=== PATIENT | male | born 1970 | race American Indian/Alaskan Native ===

== ENCOUNTER 2017-07-27 11:07 | Emergency (ER) | payer SELFPAY ==
[2017-07-27] MEDS ORDERED: ASPIRIN PO ONE (11:21)
[2017-07-27 14:39] LABS: Bilirubin,Urine NEG (Negative); Blood,Urine NEG (Negative); Color,Urine Red (Yellow); Protein,Urine <15 mg/dL mg/dL (Negative); Urobilinogen,Urine < 2.0 mg/dL (<2.0); WBC,Urine < 1.0 /HPF (0.0-6.0)
[2017-07-27] MEDS ORDERED: CATAPRES ONE (16:05)
[2017-07-27] MEDS ORDERED: CATAPRES PO ONE (16:08)
[2017-07-27] MEDS ORDERED: NACL 0.9% 1000 ML 1,000 ML IV ONE (16:23)
--- NOTE | 2017-07-27 16:26 | Emergency Department Report ---
<THALIA TALBOT - Last Filed: 07/27/17 18:25> ED General Adult HPI - General Chief complaint: Abdominal Pain Stated complaint: CHEST PAIN,ABD PAIN Time Seen by Provider: 07/27/17 16:10 Source: patient Mode of arrival: Ambulatory Limitations: No Limitations - History of Present Illness Initial comments: 47-year-old male history of gallbladder disease history of chronic pancreatitis and alcohol abuse says he is having increasing abdominal pain. Says he is supposed to his gallbladder out in 2 weeks in [place] thinks worse pain today also thinks his stool is black for 1-2 days.also wants to get checked out for chest pain, he had it at rest this am, no tearing pain, no exertional cp, no calf pain or swelling no sob , c/o l side cp began at rest this am constant all day, states had cath 6 yrs ago w/ some ?abnormalties but didn't requrie stents, no tobacco, hx of etoh and chronic pancreatitis,w. hx of htn and dm MD Complaint: multiple c/o: abd pain, cp, black stool Severity scale (0 -10): 0 Consistency: intermittent Improves with: none Worsens with: none Associated Symptoms: denies other symptoms, chest pain, nausea/vomiting, weakness. denies: diaphoresis, fever/chills, headaches, loss of appetite, malaise, rash, seizure, shortness of breath, syncope - Related Data Previous Rx's Medication Instructions Recorded Last Taken Type Dicyclomine [Bentyl] 10 mg PO QID PRN #20 capsule 07/27/17 Unknown Rx Ondansetron [Zofran Odt] 4 mg PO Q8HR PRN #20 tab.rapdis 07/27/17 Unknown Rx amLODIPine [Norvasc] 5 mg PO DAILY #30 tab 07/27/17 Unknown Rx Allergies Allergy/AdvReac Type Severity Reaction Status Date / Time SHALOM Inhibitors Allergy Angioedema Verified 07/27/17 11:21 codeine Allergy Unknown Verified 07/27/17 11:21 ketorolac [From Toradol] Allergy Hives Verified 07/27/17 11:22 tramadol Allergy Rash Verified 07/27/17 11:21 ED Review of Systems ROS: Stated complaint: CHEST PAIN,ABD PAIN Other details as noted in HPI Comment: All other systems reviewed and negative Constitutional: denies: diaphoresis, fever, malaise ENT: denies: ear pain, throat pain, dental pain, hearing loss, congestion Respiratory: denies: cough, orthopnea, shortness of breath, SOB with exertion, SOB at rest, stridor, wheezing Cardiovascular: chest pain. denies: palpitations, dyspnea on exertion, orthopnea, edema, syncope Gastrointestinal: abdominal pain, nausea. denies: vomiting, diarrhea, constipation, hematemesis, melena, hematochezia Neurological: denies: headache, weakness, numbness, paresthesias, confusion, abnormal gait, vertigo Psychiatric: denies: auditory hallucinations, visual hallucinations, homicidal thoughts, suicidal thoughts ED Past Medical Hx - Past Medical History Hx Hypertension: Yes Hx Heart Attack/AMI: Yes (2010) Hx Diabetes: Yes Additional medical history: sluggish GB - Surgical History Additional Surgical History: heart cath 2010 - Social History Smoking Status: Unknown if ever smoked Substance Use Type: Alcohol - Medications Home Medications: Home Medications Medication Instructions Recorded Confirmed Last Taken Type Dicyclomine [Bentyl] 10 mg PO QID PRN #20 capsule 07/27/17 Unknown Rx Ondansetron [Zofran Odt] 4 mg PO Q8HR PRN #20 tab.rapdis 07/27/17 Unknown Rx amLODIPine [Norvasc] 5 mg PO DAILY #30 tab 07/27/17 Unknown Rx ED Physical Exam - General Limitations: No Limitations General appearance: alert, in no apparent distress - Head Head exam: Present: atraumatic, normocephalic - Eye Eye exam: Present: normal appearance, PERRL, EOMI - ENT ENT exam: Present: normal exam, normal orophraynx - Neck Neck exam: Present: normal inspection. Absent: tenderness, meningismus - Respiratory Respiratory exam: Present: normal lung sounds bilaterally, chest wall tenderness. Absent: respiratory distress, wheezes, rales, rhonchi, stridor - Cardiovascular Cardiovascular Exam: Present: regular rate, normal rhythm, normal heart sounds, other (physical bilaterally). Absent: irregular rhythm, rubs, gallop - GI/Abdominal GI/Abdominal exam: Present: soft, tenderness, other. Absent: guarding, rebound , rigid, pulsatile mass - Rectal Rectal exam: Present: heme (-) stool - Extremities Exam Extremities exam: Present: normal inspection, normal capillary refill. Absent: tenderness, pedal edema, joint swelling, calf tenderness - Back Exam Back exam: Present: normal inspection. Absent: CVA tenderness (R), CVA tenderness (L), muscle spasm, paraspinal tenderness, vertebral tenderness - Neurological Exam Neurological exam: Present: alert, oriented X3, CN II-XII intact. Absent: motor sensory deficit - Skin Skin exam: Present: warm. Absent: diaphoretic, erythema, urticaria, vesicles, petechiae ED Course Vital Signs 07/27/17 07/27/17 07/27/17 11:10 15:56 16:08 Temperature 98.2 F 98.6 F Pulse Rate 77 75 75 Respiratory 18 16 Rate Blood Pressure 180/120 199/137 Blood Pressure 199/137 [Right] O2 Sat by Pulse 100 97 Oximetry 07/27/17 07/27/17 07/27/17 18:24 18:26 18:30 Temperature 98 F Pulse Rate 75 78 Respiratory 18 16 Rate Blood Pressure 181/116 Blood Pressure 175/121 [Right] O2 Sat by Pulse 100 100 Oximetry ED Medical Decision Making - EKG Data -: EKG Interpreted by Mn EKG shows normal: sinus rhythm Rate: normal - EKG Data When compared to previous EKG there are: previous EKG unavailable Interpretation: other 07/27/17 18:23 no acu;te ischemic chagnee - Radiology Data Radiology results: report reviewed - Medical Decision Making Patient with multiple medical complaints history of alcoholism with chronic pancreatitis currently on enzymes he is here stating that his gallbladder supposed to come out in 2 weeks with right upper quadrant and epigastric pain. He also complaining of black stool over the stool is heme negative laboratory studies were just now sent and are pending CT abdomen and pelvis shows chronic pancreatitis normal appendix no evidence of gallbladder or biliary disease on CT. Patient then began to state that he needed it checked for his chest pain as well he does have some risk factors including diabetes and hypertension his blood pressure was elevated and this will be treated with some nitroglycerin paste initially he states he did take his aspirin today and he has been compliant with his multiple blood pressure medications. EKG showed no acute ischemic change troponin is pending chest pain is atypical laboratory studies will be needed to further evaluate but no evidence of ACS at this time patient will return to care to oncoming physician for further evaluation of laboratory studies and disposition Critical care attestation.: If time is entered above; I have spent that time in minutes in the direct care of this critically ill patient, excluding procedure time. ED Disposition Clinical Impression: Elevated blood pressure reading, Abdominal pain Disposition: DC-01 TO HOME OR SELFCARE Condition: Good Instructions: Chest Pain (ED), Abdominal Pain (ED) Additional Instructions: Take the pain medication, nausea medication as needed/directed. Please follow up with any of the listed program production specialist within the next 3 days for your elevated blood pressure and hypertension. Take the blood pressure medication as directed. 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 Long-term complications of hypertension and elevated blood pressure includes stroke, heart attack, disability, , paralysis, loss of quality of life. Therefore, it is very important that you as the patient follow up as recommended within the recommended timeframe. Avoid consumption of heavy and spicy foods and alcohol, and follow up with either your primary care doctor or gastroenterology specialist within the next 3-4 weeks for your acute on chronic abdominal pain. Please return to the ER right away with you pain, worsened pain, migration of pain, fevers, chills, lethargy, irritability, projectile vomiting, change in mental status, confusion, new worsening or different symptoms. Referrals: PRIMARY CAREMD [Primary Care Provider] - 3-5 Days [facility] [Provider Group] - 3-5 Days [facility] [Provider Group] - 3-5 Days [facility] [Provider Group] - 3-5 Days MARKIE RIVAS MD [Staff Physician] - 3-5 Days <JG HAMMOND - Last Filed: 07/27/17 20:56> ED Course - Reevaluation(s) Reevaluation #1: 07/27/17 20:51 EKG is unchanged 2 with the exception of left ventricular hypertrophy, high left ventricular voltage. Troponin negative 2. X-ray of the chest is negative. Noncontrast CT scan of the abdomen and pelvis demonstrates no acute findings. Patient resting comfortably in stretcher in no distress, blood pressure improved, pressure in the 170s, patient will be discharged as per Dr. Bravo plan to follow up with outpatient primary care, gastroenterology, cardiology. ED Medical Decision Making - Lab Data Result diagrams: 07/27/17 18:00 07/27/17 18:00 Vital Signs 07/27/17 07/27/17 07/27/17 11:10 15:56 16:08 Temperature 98.2 F 98.6 F Pulse Rate 77 75 75 Respiratory 18 16 Rate Blood Pressure 180/120 199/137 Blood Pressure 199/137 [Right] O2 Sat by Pulse 100 97 Oximetry 07/27/17 07/27/17 07/27/17 18:24 18:26 18:30 Temperature 98 F Pulse Rate 75 78 Respiratory 18 16 Rate Blood Pressure 181/116 Blood Pressure 175/121 [Right] O2 Sat by Pulse 100 100 Oximetry Lab Results 07/27/17 07/27/17 07/27/17 Range/Units 18:00 18:00 18:00 WBC 3.8 L (4.5-11.0) K/mm3 RBC 3.83 (3.65-5.03) M/mm3 Hgb 10.7 L (11.8-15.2) gm/dl Hct 32.8 L (35.5-45.6) % MCV 86 (84-94) fl MCH 28 (28-32) pg MCHC 33 (32-34) % RDW 21.0 H (13.2-15.2) % Plt Count 177 (140-440) K/mm3 [place] % (Auto) Urologist Physician PT 13.2 (12.2-14.9) Sec. INR 0.95 (0.87-1.13) APTT 29.5 (24.2-36.6) Sec. Sodium 137 (137-145) mmol/L Potassium 3.5 L (3.6-5.0) mmol/L Chloride 97.7 L (98-107) mmol/L Carbon Dioxide 24 (22-30) mmol/L Anion Gap 19 mmol/L BUN 5 L (9-20) mg/dL Creatinine 0.7 L (0.8-1.5) mg/dL Estimated GFR > 60 ml/min BUN/Creatinine Ratio 7 % Glucose 110 H (75-100) mg/dL Calcium 9.0 (8.4-10.2) mg/dL Total Bilirubin 1.10 (0.1-1.2) mg/dL AST 22 (5-40) units/L ALT 12 (7-56) units/L Alkaline Phosphatase 70 (35-129) units/L Troponin T < 0.010 (0.00-0.029) ng/mL NT-Pro-B Natriuret Pep (0-450) pg/mL Total Protein 7.2 (6.3-8.2) g/dL Albumin 4.3 (3.9-5) g/dL Albumin/Globulin Ratio 1.5 % Urine Color (Yellow) Urine Turbidity (Clear) Urine pH (5.0-7.0) Ur Specific [place] (1.003-1.030) Urine Protein (Negative) mg/dL Urine Glucose (UA) (Negative) mg/dL Urine Ketones (Negative) mg/dL Urine Blood (Negative) Urine Nitrite (Negative) Urine Bilirubin (Negative) Urine Urobilinogen (<2.0) mg/dL Ur Leukocyte Esterase (Negative) Urine WBC (Auto) (0.0-6.0) /HPF Urine RBC (Auto) (0.0-6.0) /HPF 07/27/17 07/27/17 Range/Units Unknown Unknown WBC (4.5-11.0) K/mm3 RBC (3.65-5.03) M/mm3 Hgb (11.8-15.2) gm/dl Hct (35.5-45.6) % MCV (84-94) fl MCH (28-32) pg MCHC (32-34) % RDW (13.2-15.2) % Plt Count (140-440) K/mm3 [place] % (Auto) PT (12.2-14.9) Sec. INR (0.87-1.13) APTT (24.2-36.6) Sec. Sodium (137-145) mmol/L Potassium (3.6-5.0) mmol/L Chloride (98-107) mmol/L Carbon Dioxide (22-30) mmol/L Anion Gap mmol/L BUN (9-20) mg/dL Creatinine (0.8-1.5) mg/dL Estimated GFR ml/min BUN/Creatinine Ratio % Glucose (75-100) mg/dL Calcium (8.4-10.2) mg/dL Total Bilirubin (0.1-1.2) mg/dL AST (5-40) units/L ALT (7-56) units/L Alkaline Phosphatase (35-129) units/L Troponin T (0.00-0.029) ng/mL NT-Pro-B Natriuret Pep 86.74 (0-450) pg/mL Total Protein (6.3-8.2) g/dL Albumin (3.9-5) g/dL Albumin/Globulin Ratio % Urine Color Red (Yellow) Urine Turbidity Clear (Clear) Urine pH 8.0 H (5.0-7.0) Ur Specific [place] 1.004 (1.003-1.030) Urine Protein <15 mg/dl (Negative) mg/dL Urine Glucose (UA) Neg (Negative) mg/dL Urine Ketones Neg (Negative) mg/dL Urine Blood Neg (Negative) Urine Nitrite Neg (Negative) Urine Bilirubin Neg (Negative) Urine Urobilinogen < 2.0 (<2.0) mg/dL Ur Leukocyte Esterase Neg (Negative) Urine WBC (Auto) < 1.0 (0.0-6.0) /HPF Urine RBC (Auto) 1.0 (0.0-6.0) /HPF - Radiology Data Radiology results: image reviewed interpreted by me: X-ray of the chest, interpreted by me: No acute disease ED Disposition Is pt being admited?: No Does the pt Need Aspirin: No
--- NOTE | 2017-07-27 17:34 | Cat Scan Report ---
FINAL REPORT PROCEDURE: CT ABDOMEN PELVIS WO CON TECHNIQUE: Computerized axial tomography of the abdomen and pelvis was performed without intravenous contrast. This study is performed without intravascular contrast material and its sensitivity for abdominal and pelvic pathology, including neoplasms, inflammation, abscess, free fluid, thrombosis, arterial dissection and infarction, is reduced compared with a contrast enhanced study. HISTORY: abd pain COMPARISON: No prior studies are available for comparison. FINDINGS: Visualized lower thorax: There is small area of patchy airspace opacity in the lateral right lower lobe, related to atelectasis or infiltrate. Liver: There is diffuse low attenuation of the liver, compatible with fatty infiltration. Spleen: Normal size and attenuation. Gallbladder and biliary system: Normal. Pancreas: There are numerous calcifications in the pancreatic head which can be seen with prior pancreatitis. No acute inflammation is seen. Pancreatic head is mildly prominent. Adrenals: Normal. Kidneys: There is a punctate nonobstructive calculus in the right kidney upper pole. There is a rounded 8 millimeter lesion in the anterior right kidney mid to lower pole, possibly a hyperdense cyst. GI tract: Appendix is visualized and does not appear inflamed. No bowel obstruction or acute inflammation is seen. Lymph nodes and mesentery: Normal. Vasculature: Normal. Bladder: Circumferential urinary bladder wall thickening. Reproductive organs: Normal. Peritoneum: No free fluid. Musculoskeletal structures: No significant abnormality. Other: None. IMPRESSION: Numerous pancreatic head calcifications can be seen with prior pancreatitis. Pancreatic head appears mildly prominent compared to the pancreatic body and tail. Recommend dedicated pancreatic CT with IV contrast to evaluate for possible neoplastic process. No acute inflammation is seen.
[2017-07-27] MEDS ORDERED: NITROSTAT SL PRN (18:14)
[2017-07-27] MEDS ORDERED: NITRO-BID 2% TP ONE (18:14)
[2017-07-27] MEDS ORDERED: ZOFRAN IV ONE (18:17)
[2017-07-27] MEDS ORDERED: MORPHINE IV ONE (18:17)
[2017-07-27 18:23] LABS: Hematocrit 32.8 % (35.5-45.6); Hemoglobin 10.7 gm/dl (11.8-15.2); Mean Corpuscular HGB Conc 33 % (32-34); Mean Corpuscular Hemoglobin 28 pg (28-32); Mean Corpuscular Volume 86 fl (84-94); Platelet Count 177 K/mm3 (140-440); Red Blood Count 3.83 M/mm3 (3.65-5.03)
[2017-07-27 18:38] LABS: Alanine Aminotransferase 12 units/L (7-56); Albumin 4.3 g/dL (3.9-5); BUN/Creatinine Ratio 7; Blood Urea Nitrogen 5 mg/dL (9-20); Hemolysis Index 12
[2017-07-27] MEDS ORDERED: BENADRYL ONE (18:40)
[2017-07-27 18:46] LABS: INR 0.95 (0.87-1.13)
[2017-07-27 18:47] LABS: Partial Thromboplastin Time 29.5 Sec. (24.2-36.6)
[2017-07-27] MEDS ORDERED: BENADRYL IV ONE (18:58)
--- NOTE | 2017-07-27 19:29 | XRay Report ---
FINAL REPORT PROCEDURE: XR CHEST ROUTINE 2V TECHNIQUE: PA and lateral chest radiographs were obtained. CPT 90963 HISTORY: Chest pain COMPARISON: No prior studies are available for comparison. FINDINGS: Heart: Normal. Mediastinum/Vessels: Normal. Lungs/Pleural space: No infiltrate, effusion, or pneumothorax. Bony thorax: No acute osseous abnormality. Other: IMPRESSION: No radiographic evidence of acute abnormality.
[2017-07-27] MEDS ORDERED: CARAFATE PO ONE (19:33)
[2017-07-27] MEDS ORDERED: BENTYL PO ONE (21:00)
[2017-07-27 21:38] VITALS: BP 164/119
[2017-07-27 22:03] LABS: Anisocytosis 1+; Band Neutrophils # (Manual) 0.1 K/mm3; Basophils % (Manual) 0 % (0.0-1.8); Platelet Estimate Consistent w Auto; Total Cells Counted 100
== END 2017-07-27 22:27 | disposition home or self-care (01) ==
LOC: ED 11:07
DX: R10.9 Unspecified abdominal pain (principal); R07.9 Chest pain, unspecified; K92.1 Melena; I21.9 Acute myocardial infarction, unspecified; I10 Essential (primary) hypertension; E11.9 Type 2 diabetes mellitus without complications; F10.10 Alcohol abuse, uncomplicated; K86.1 Other chronic pancreatitis; Z88.8 Allergy status to other drugs, medicaments and biological substances; Z88.6 Allergy status to analgesic agent
CPT/HCPCS: 36415; 71046; 74176; 80053; 81001; 82271; 83880; 84484; 85007; 85025; 85610; 85730; 86850; 86900; 86901; 93005; 93010; 96361; 96374; 96375; 99285; J1200; J2270; J2405; J7030